=== PATIENT | female | born 1975 | race Caucasian/White ===

== ENCOUNTER 2022-12-05 06:53 | Day surgery (SDC) | payer OTHER ==
[~2022-12-05] VITALS: Ht 157.5 cm; Wt 64.4 kg
[2022-12-05 07:51] LABS: HCG,QUAL RESULT NEGATIVE (NEGATIVE)
[2022-12-05] MEDS: MIDAZOLAM HCL 5 MG/5 ML VIAL ONE ×4 (07:58→08:07)
[2022-12-05] MEDS: fentaNYL CITRATE/PF 100 MCG/2 ML AMP ONE ×3 (07:58→08:13)
[2022-12-05 11:23] VITALS: BP_SYST 92
== END 2022-12-05 13:00 | disposition home or self-care (01) ==
LOC: SDS 06:53 → SMU 06:53 → SDS 13:00
PROVIDERS: ATTEND Internal Medicine
DX: Z12.11 Encounter for screening for malignant neoplasm of colon (principal); K21.9 Gastro-esophageal reflux disease without esophagitis; K64.8 Other hemorrhoids; K29.50 Unspecified chronic gastritis without bleeding; B96.81 Helicobacter pylori [H. pylori] as the cause of diseases classified elsewhere; Z79.899 Other long term (current) drug therapy
CPT/HCPCS: 45378; 43239; 87081; 84703; 36415; 88305; 88312; 88313; 99152; 99153; G0378; J2250; J3010